=== PATIENT | female | born 1990 | race Caucasian/White ===

== ENCOUNTER 2018-05-05 20:38 | Emergency (ER) | payer MEDICAID ==
[~2018-05-05] VITALS: Ht 160 cm; Wt 59.0 kg
[2018-05-05 20:44] VITALS: BP_SYST 123
[2018-05-05 21:43] VITALS: BP_SYST 123
== END 2018-05-05 21:43 | disposition home or self-care (01) ==
LOC: SED 20:38
DX: S62.603A Fracture of unspecified phalanx of left middle finger, initial encounter for closed fracture (principal); F17.210 Nicotine dependence, cigarettes, uncomplicated; R03.0 Elevated blood-pressure reading, without diagnosis of hypertension; W23.0XXA Caught, crushed, jammed, or pinched between moving objects, initial encounter; Y93.89 Activity, other specified; Y92.89 Other specified places as the place of occurrence of the external cause; Y99.8 Other external cause status
CPT/HCPCS: 73140-TC; 99283

== ENCOUNTER 2021-09-04 04:06 | Emergency (ER) | payer MEDICAID ==
[~2021-09-04] VITALS: Ht 160 cm; Wt 69.4 kg
[2021-09-04] MEDS ORDERED: AMPICILLIN SODIUM/SULBACTAM NA 1.5 GM in NS 50 ML IV ONE (05:15)
[2021-09-04] MEDS ORDERED: NACL 0.9% 1,000 ML IV ONE (05:15)
[2021-09-04] MEDS ORDERED: CLINDAMYCIN 600 mg/50mL D5W 50 ML IV ONE (05:15)
[2021-09-04] MEDS ORDERED: AMPICILLIN SODIUM/SULBACTAM NA 1.5 GM VIAL ONE (05:30)
[2021-09-04 06:01] VITALS: BP_SYST 90
[2021-09-04] MEDS ORDERED: CLIN300C3 PO (06:19)
[2021-09-04] MEDS ORDERED: AUG875 PO (06:19)
[2021-09-04] MEDS ORDERED: NAPR-690 PO (06:25)
[2021-09-04] MEDS ORDERED: ONDA-8 TL (06:25)
[2021-09-04] MEDS ORDERED: KETOROLAC TROMETHAMINE 30 MG VIAL IVP ONE (06:30)
[2021-09-04 09:20] VITALS: BP_SYST 90
== END 2021-09-04 09:21 | disposition home or self-care (01) ==
LOC: SED 04:06
DX: S71.152A Open bite, left thigh, initial encounter (principal); L08.9 Local infection of the skin and subcutaneous tissue, unspecified; W54.0XXA Bitten by dog, initial encounter; Y93.89 Activity, other specified; Y92.89 Other specified places as the place of occurrence of the external cause; Y99.8 Other external cause status
CPT/HCPCS: 36415; 87040; 96361; 96365; 96367; 96375; 99284; J0295; J1885; J3490; J7030

== ENCOUNTER 2022-06-29 05:05 | Emergency (ER) | payer MEDICAID, OTHER ==
[~2022-06-29] VITALS: Ht 160 cm; Wt 74.8 kg
[~2022-06-29 05:05] MED LIST: AUG875 PO; CLIN300C3 PO; NAPR-690 PO; ONDA-8 TL
[2022-06-29 05:16] VITALS: BP_SYST 125
[2022-06-29] MEDS ORDERED: IBUPROFEN 600 MG TABLET PO ONE (05:45)
[2022-06-29 05:50] VITALS: BP_SYST 111
[2022-06-29] MEDS ORDERED: BENZ100C92 PO (05:51)
[2022-06-29] MEDS ORDERED: IBUP-1969 PO (05:51)
[2022-06-29 06:37] LABS: CLARITY/URINE CLEAR (CLEAR); COLOR,URINE YELLOW (YELLOW); PH,URINE 7.5 (5.0-8.0)
[2022-06-29 06:38] LABS: BILIRUBIN,URINE NEGATIVE (NEGATIVE); BLOOD, URINE NEGATIVE (NEGATIVE); GLUCOSE,URINE NEGATIVE (NEGATIVE); KETONES,URINE NEGATIVE (NEGATIVE); LEUKOCYTE ESTERASE ,URINE NEGATIVE (NEGATIVE); NITRITE, URINE NEGATIVE (NEGATIVE); PROTEIN URINE NEGATIVE (NEGATIVE)
== END 2022-06-29 06:15 | disposition home or self-care (01) ==
LOC: SED 05:05
DX: J06.9 Acute upper respiratory infection, unspecified (principal); J02.9 Acute pharyngitis, unspecified; R05.9 Cough, unspecified; R09.81 Nasal congestion; Z79.899 Other long term (current) drug therapy; Z20.822 Contact with and (suspected) exposure to COVID-19
CPT/HCPCS: 36415; 81003; 81025; 99283

== ENCOUNTER → 2022-09-12 | Emergency (ER) | payer OTHER ==
[~2022-09-12] VITALS: Ht 160 cm; Wt 72.6 kg
[~2022-09-12] MED LIST changes: +BENZ100C92 PO; +IBUP-1969 PO
[2022-09-12 16:48] VITALS: BP_SYST 108
[2022-09-12 17:14] LABS: BLOOD, URINE NEGATIVE (NEGATIVE); GLUCOSE,URINE NEGATIVE (NEGATIVE); KETONES,URINE TRACE (NEGATIVE); LEUKOCYTE ESTERASE ,URINE NEGATIVE (NEGATIVE); PROTEIN URINE 1+ (NEGATIVE)
[2022-09-12 17:29] LABS: BILIRUBIN,URINE 2+ (NEGATIVE); CLARITY/URINE SLIGHTLY HAZY (CLEAR); COLOR,URINE AMBER (YELLOW); NITRITE, URINE NEGATIVE (NEGATIVE)
[2022-09-12 17:31] LABS: BACTERIA,URINE FEW /HPF (None Seen); RBC,URINE 0-3 /HPF (0-3); WBC,URINE 0-3 /HPF (0-3)
[2022-09-12 17:32] LABS: MUCUS,URINE 3+ /LPF (None Seen)
[2022-09-15 09:30] VITALS: BP_SYST 135
== END | disposition left against medical advice (07) ==
LOC: SED 16:30
DX: R10.9 Unspecified abdominal pain (principal); R11.10 Vomiting, unspecified; Z53.21 Procedure and treatment not carried out due to patient leaving prior to being seen by health care provider
CPT/HCPCS: 81000; 81025; 99281

== ENCOUNTER 2022-10-15 17:40 | Emergency (ER) | payer OTHER ==
[~2022-10-15] VITALS: Ht 160 cm; Wt 77.1 kg
[2022-10-15 17:40] VITALS: BP_SYST 116; PULSE 85; RESP 18; TEMP 97.4; O2SAT 97
== END 2022-10-15 19:30 | disposition left against medical advice (07) ==
LOC: SED 17:40
DX: N89.8 Other specified noninflammatory disorders of vagina (principal); R11.0 Nausea; R50.9 Fever, unspecified; Z79.899 Other long term (current) drug therapy
CPT/HCPCS: 99281

== ENCOUNTER 2023-09-29 17:36 | Emergency (ER) | payer OTHER ==
[~2023-09-29] VITALS: Ht 160 cm; Wt 75.7 kg
[2023-09-29 17:38] VITALS: BP_SYST 127; PULSE 86; RESP 15; TEMP 98; O2SAT 97
[2023-09-29] MEDS ORDERED: LIDOCAINE 1%, 20 ML MDV 20 ML ONE (19:57)
[2023-09-29] MEDS: BACITRACIN 1 GM OINT TP ONE (20:07)
[2023-09-29] MEDS: DIPHTH,PERTUSS(ACELL),TET VAC 0.5 ML VIAL (Tdap) I.M. ONE (20:11)
[2023-09-29] MEDS: LIDOCAINE 1% 10 MG/ML, 20 ML MDV INJ ONE (20:19)
[2023-09-29] MEDS: IBUPROFEN 800 MG TABLET PO ONE (20:41)
[2023-09-29 20:49] VITALS: BP_SYST 123; PULSE 82; RESP 16; TEMP 98; O2SAT 98
== END 2023-09-29 20:49 | disposition home or self-care (01) ==
LOC: SED 17:36
DX: S01.81XA Laceration without foreign body of other part of head, initial encounter (principal); Z23 Encounter for immunization; R42 Dizziness and giddiness; R11.0 Nausea; Z79.899 Other long term (current) drug therapy; Z79.2 Long term (current) use of antibiotics; W22.8XXA Striking against or struck by other objects, initial encounter; Y93.89 Activity, other specified; Y92.89 Other specified places as the place of occurrence of the external cause; Y99.8 Other external cause status
CPT/HCPCS: 70450-TC; 81025; 90715; 99285; J2001

== ENCOUNTER 2023-10-28 12:55 | Emergency (ER) | payer OTHER ==
[~2023-10-28] VITALS: Ht 160 cm; Wt 72.6 kg
[2023-10-28 12:55] VITALS: BP_SYST 115; PULSE 80; RESP 17; TEMP 97.3; O2SAT 98
[2023-10-28 13:22] LABS: BILIRUBIN,URINE NEGATIVE (NEGATIVE); BLOOD, URINE NEGATIVE (NEGATIVE); CLARITY/URINE CLEAR (CLEAR); COLOR,URINE YELLOW (YELLOW); GLUCOSE,URINE NEGATIVE (NEGATIVE); KETONES,URINE NEGATIVE (NEGATIVE); LEUKOCYTE ESTERASE ,URINE NEGATIVE (NEGATIVE); NITRITE, URINE NEGATIVE (NEGATIVE); PROTEIN URINE TRACE (NEGATIVE); UROBILINOGEN,URINE 0.2 (0.2-1.0)
[2023-10-28 13:37] LABS: BASOPHILS % (AUTO) 0.8 % (0.0-2.0); EOSINOPHILS % (AUTO) 0.7 % (0.0-4.0); HEMATOCRIT 37.5 % (36-48); HEMOGLOBIN 12.4 g/dL (12.0-16.0); LYMPHOCYTES # (AUTO) 2.3 K/uL (1.0-5.5); LYMPHOCYTES % (AUTO) 40.4 % (20.5-51.5); MEAN CORPUSCULAR HEMOGLOBIN 30 pg (27-31); MEAN CORPUSCULAR HGB CONC 33 % (32-36); MEAN CORPUSCULAR VOLUME 90 fL (79.0-98.0); MONOCYTES # (AUTO) 0.5 K/uL (0.0-1.0); MONOCYTES % (AUTO) 8.8 % (1.7-9.3); NEUTROPHILS # (AUTO) 2.8 K/uL (1.8-7.7); NEUTROPHILS % (AUTO) 49.3 % (40.0-70.0); PLATELET COUNT (AUTO) 203 K/uL (130-430); RED BLOOD CELL COUNT(AUTO) 4.19 MIL/uL (4.2-6.2); RED CELL DISTRIBUTION WIDTH 13.6 % (9.0-15.0); WHITE BLOOD COUNT (AUTO) 5.7 K/uL (4.8-10.8)
[2023-10-28 13:48] LABS: CALCIUM 8.6 mg/dL (8.4-11.0); CREATININE 0.81 mg/dL (0.55-1.30); POTASSIUM 3.8 mmol/L (3.5-5.1)
[2023-10-28] MEDS ORDERED: METR-154 PO (15:19)
[2023-10-28] MEDS ORDERED: IBUP-1969 PO (15:20)
[2023-10-28] MEDS: AZITHROMYCIN 250 MG TABLET PO ONE (15:21)
[2023-10-28] MEDS: cefTRIAXone 1 GM VIAL IM ONE (15:21)
[2023-10-28 15:36] VITALS: BP_SYST 115; PULSE 80; RESP 17; TEMP 97.3; O2SAT 98
== END 2023-10-28 15:30 | disposition home or self-care (01) ==
LOC: SED 12:55
DX: R10.30 Lower abdominal pain, unspecified (principal); Z71.6 Tobacco abuse counseling; R30.0 Dysuria; R35.0 Frequency of micturition; Z79.899 Other long term (current) drug therapy; Z79.2 Long term (current) use of antibiotics
CPT/HCPCS: 99283; 80048; 81001; 85025; 36415; 81025; 96372; 81003; J0696; Q0144